=== PATIENT | female | born 1990 | race Caucasian/White ===

== ENCOUNTER 2018-11-19 07:34 | Inpatient (IN) ==
[2018-11-20] MEDS ORDERED: DINOPROSTONE 10 MG INSERT PV ONE (09:11)
[2018-11-20] MEDS ORDERED: OXYTOCIN 30 UNITS/500 ML BAG IV PRN (09:11)
--- NOTE | 2018-11-20 09:31 | History & Physical Report ---
Date of Service November 20, 2018 Assessment & Plan (1) Post-dates : 28 yo at 41.4 wks, IOL for postdates GBS negative FHR reassuring Plan admit, labs, monitor, Cervidil for cervical ripening All questions were answered History of Present Illness Chief Complaint: Induction of labor Primary Care Provider: NO PCP Patient is a 28 yo t 41.4 wks, IOL for postdates No complaints No ctxs/ LOF/VB +FM No SANDERS/ Change in vision/ N&V/ leg pain Her has been uncomplicated GBS negative Allergies Allergy/AdvReac Type Severity Reaction Status Date / Time No Known Allergies Allergy Unknown Verified 11/18/18 22:02 Home Medications Home Medications Medication Instructions Recorded Confirmed Type vit-iron fum-folic ac 1 tab PO DAILY 11/18/18 11/18/18 History [ Vitamin] Patient History Medical History PCOS (polycystic ovarian syndrome) (Chronic) IBS (irritable bowel syndrome) (Chronic) Alcohol withdrawal (Acute) Tobacco use disorder (Chronic) Surgical History No pertinent past surgical history Social History Preferred Language: Lebanese Visual Impairment: No Limitations Beliefs That Will Affect Care: None marital status: Single Current Living Situation: Significant Other Other Information That Helps Us Care for You: No Feels Safe at Home: Yes Safety Concerns: Feels Safe At This Time Smoking Status: Never smoker Hx Alcohol Use: No 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
[2018-11-20 09:38] LABS: Hematocrit (blood only) 30.6 % (37-47); Hemoglobin 10.2 g/dL (12.0-16.0); Platelet Count 229 K/uL (130-400); RDW Coefficient of Variation 13.7 % (11.5-14.5); RDW Standard Deviation 41.6 fL (36.4-46.3); Red Blood Count 3.73 M/uL (4.2-5.4); White Blood Count 8.41 K/uL (4.8-10.8)
[2018-11-20 09:55] LABS: Mean Corpuscular Hgb Conc 33.3 g/dL (32-36)
--- NOTE | 2018-11-20 17:57 | Obstetrical Progress Note ---
Date of Service November 20, 2018 Subjective Patient is reevaluated She feels cramping/ ctxs on and off, mildly painful, not very regular yet Able to walk in hallways No LOF/VB +FM FHR : categ I [place]: ctxs q1-3 min, patient does not feel them all Continue to monitor Results & Data Vital Signs (Past 12 Hours) Vital Signs Temp Pulse Resp BP 11/20/18 17:02 83 128/66 11/20/18 14:58 96 H 131/81 11/20/18 10:09 106 H 123/69 11/20/18 09:00 37.3 C 20
[2018-11-20] MEDS ORDERED: BUTORPHANOL TARTRATE 2 MG/ML VIAL IV PRN (18:53)
[2018-11-20] MEDS ORDERED: ONDANSETRON INJ 2 MG/ML 2 ML VIAL IV PRN (18:53)
--- NOTE | 2018-11-20 23:15 | Obstetrical Progress Note ---
Date of Service November 20, 2018 Subjective Patient is reevaluated Cervidil was removed about on hour ago, cervix was unchanged, 1-2/ 30%/ -4, posterior She took shower and ate dinner She does not feel much ctxs She feels pelvic pain while walking only No pain while in bed No LOF/VB +FM FHR 140's, categ I, good accels, no decels, moderate variability [place]: mild short ;lasting ctxs ( palpated) every 1-4 min, patient does not feel them all Plan continue with cervical ripening, PO Cytotec All questions were answered Results & Data Vital Signs (Past 12 Hours) Vital Signs Temp Pulse Resp BP 11/20/18 22:03 100 H 138/85 11/20/18 18:17 36.9 C 18 11/20/18 17:02 83 128/66 11/20/18 14:58 96 H 131/81
[2018-11-21] MEDS: miSOPROStol 50 MCG TAB PO SCH ×4 (00:55→13:22)
[2018-11-21] MEDS ORDERED: OXYTOCIN 30 UNITS/500 ML BAG IV PRN (10:36)
[2018-11-21] MEDS: LACTATED RINGER'S 1,000 ML IV PRN ×4 (11:49→21:28)
[2018-11-21] MEDS ORDERED: fentaNYL citrate 100 MCG/2 ML VIAL ONE ×2 (16:26→23:55)
[2018-11-21] MEDS ORDERED: ePHEDrine sulfate 50 MG/ML AMP ONE (16:26)
[2018-11-21] MEDS ORDERED: BUPIVACAINE 0.25% 30 ML VIAL ONE (16:26)
[2018-11-21] MEDS ORDERED: fentaNYL 2MCG/ML ROPIV 1.25MG/ML 100 ML BAG EPI ONE (16:27)
--- NOTE | 2018-11-21 16:55 | Anesthesiology Consultation ---
Date of Service November 21, 2018 Assessment & Plan Chart Review Chart Review: Patient NOT seen in Pre Admission Testing and Acceptable Risk for Labor Epidural Consults Requested none ASA ASA2 Proposed Anesthesia Anesthesia Type: Labor Epidural Risk / Benefits Reviewed With: PT / POA / Parent / Guardian, Accepts Plan and Informed Consent Obtained History Height/Weight Height: 1.57 m Weight: 71.668 kg Allergies Allergy/AdvReac Type Severity Reaction Status Date / Time No Known Allergies Allergy Unknown Verified 11/18/18 22:02 Medications Home Medications Medication Instructions Recorded Confirmed Last Taken vit-iron fum-folic ac 1 tab PO DAILY 11/20/18 11/20/18 11/19/18 08:00 [ Vitamin] Active Medications Generic Name Dose Route Start Last Admin Trade Name Freq PRN Reason Stop Dose Admin Lactated Ringer's 1,000 mls @ 150 mls/hr 11/20/18 09:11 11/21/18 16:44 Lr IV 11/22/18 09:10 999 mls/hr .Q6H40M PRN Administration L&D Protocol Protocol Oxytocin 30 units in 500 mls @ 10 mls/hr 11/21/18 10:36 11/21/18 16:07 Pitocin IV 11/23/18 10:35 0.6 units/hr .Q24H PRN 10 mls/hr Labor Induction/Augmentation Titration Protocol Misoprostol 50 mcg 11/20/18 23:00 11/21/18 13:22 Cytotec PO 12/20/18 22:59 Not Given Q4 ELEN NPO Date Last Intake of Fluids: 11/21/18 Time Last Intake of Fluids: 15:55 Date Last Intake of Solids: 11/21/18 Time Last Intake of Solids: 13:00 Past Medical History Medical History PCOS (polycystic ovarian syndrome) (Chronic) IBS (irritable bowel syndrome) (Chronic) Alcohol withdrawal (Acute) Tobacco use disorder (Chronic) Exercise / Class Metabolic Activity II 4-5 Yardwork/Stairs/Walk up hill Past Surgical History Surgical History H/O laceration of skin Facial s/p surgery No pertinent past surgical history Past Anesthesia History No Hx of Anesthesia Complications and No Family Hx of Anesthesia Complications History of PONV No Hx of PONV and No Hx of Motion Sickness Social History Smoking Status: Never smoker Hx Alcohol Use: No Alcohol type: hard liquor (06/23 everyday) Hx Substance Use: No substance use type: does not use Physical Exam Vital Signs Last Vital Signs Temp 37.1 C 11/21/18 16:40 Pulse 104 H 11/21/18 16:48 Resp 20 11/21/18 16:40 BP 125/80 11/21/18 16:40 Pulse Ox 100 11/21/18 16:48 ENMT Mouth: no TMJ abnormality and no TMJ clicking Thyromental Distance: > or= 3.5 Finger Breadths Mallampati Class: II Neck normal visual inspection; neck extension not limited Respiratory Auscultation: lungs clear to auscultation bilaterally Cardiovascular Rate/Rhythm: regular rate and regular rhythm Heart Sounds: no murmur Psychiatric Orientation: alert and oriented x 3
[2018-11-21] MEDS ORDERED: NALBUPHINE HCL INJ 10 MG/ML AMP IV PRN (17:30)
[2018-11-21] MEDS ORDERED: PROMETHAZINE HCL 12.5 MG in SODIUM CHLORIDE 0.9% 50 ML IV PRN ×2 (17:30→23:57)
[2018-11-21] MEDS ORDERED: NALOXONE HCL 0.4 MG/1 ML VIAL/CARP IV PRN (17:30)
[2018-11-21] MEDS ORDERED: fentaNYL 2MCG/ML ROPIV 1.25MG/ML 100 ML BAG EPI PRN (17:30)
[2018-11-21] MEDS ORDERED: NALOXONE HCL 1 MG in SODIUM CHLORIDE 0.9% 1000ML 1,000 ML IV PRN (17:30)
[2018-11-21] MEDS ORDERED: DiphenhydrAMINE HCL 50 MG/ML VIAL IV PRN (17:30)
[2018-11-21] MEDS ORDERED: ONDANSETRON INJ 2 MG/ML 2 ML VIAL IV PRN ×2 (17:30→23:57)
[2018-11-21] MEDS ORDERED: ePHEDrine sulfate 50 MG/ML AMP IV PRN ×2 (17:30→23:57)
[2018-11-21] MEDS ORDERED: cefOXitin 2,000 MG/60 ML BAG IV STA (23:53)
[2018-11-21] MEDS ORDERED: LIDOCAINE/EPINEPHRINE 2% 1:200,000 20 ML SDV ONE (23:55)
[2018-11-21] MEDS ORDERED: ATROPINE SULFATE 0.1 MG/ML 10ML SYR IV PRN (23:57)
[2018-11-21] MEDS ORDERED: fentaNYL citrate 100 MCG/2 ML VIAL IV PRN (23:57)
[2018-11-21] MEDS ORDERED: PHENYLEPHRINE 100MCG/ML 5ML SYR IV PRN (23:57)
[2018-11-22] MEDS ORDERED: CITRIC ACID/SODIUM CITRATE 15 ML UDC PO ONE
[2018-11-22] MEDS ORDERED: OXYTOCIN 10 UNITS/ML VIAL ONE (00:22)
[2018-11-22] MEDS ORDERED: MoRPHine SULFATE PF 1 MG/ML 10 ML AMP/VIAL ONE (00:23)
--- NOTE | 2018-11-22 00:32 | Anesthesiology Consultation ---
Date of Service November 22, 2018 Assessment & Plan Chart Review Chart Review: Acceptable Risk for Surgery and Patient NOT seen in Pre Admission Testing Consults Requested none ASA ASA2E Proposed Anesthesia Anesthesia Type: MAC Epidural Risk / Benefits Reviewed With: PT / POA / Parent / Guardian, Accepts Plan and Informed Consent Obtained History Surgery Operation Date: 11/21/18 23:30 Proposed Procedures p Section in LD - Twan Sanchez MD Height/Weight Height: 1.57 m Weight: 71.668 kg Allergies Allergy/AdvReac Type Severity Reaction Status Date / Time No Known Allergies Allergy Unknown Verified 11/18/18 22:02 Medications Home Medications Medication Instructions Recorded Confirmed Last Taken vit-iron fum-folic ac 1 tab PO DAILY 11/20/18 11/20/18 11/19/18 08:00 [ Vitamin] Active Medications Generic Name Dose Route Start Last Admin Trade Name Freq PRN Reason Stop Dose Admin Lactated Ringer's 1,000 mls @ 150 mls/hr 11/20/18 09:11 11/21/18 22:39 Lr IV 11/22/18 09:10 150 mls/hr .Q6H40M PRN Infusion L&D Protocol Protocol Oxytocin 30 units in 500 mls @ 12 mls/hr 11/21/18 10:36 11/21/18 23:49 Pitocin IV 11/23/18 10:35 Infused .Q24H PRN Titration Labor Induction/Augmentation Protocol 0.72 UNITS/HR Misoprostol 50 mcg 11/20/18 23:00 11/21/18 13:22 Cytotec PO 12/20/18 22:59 Not Given Q4 ELEN NPO Date Last Intake of Fluids: 11/21/18 Time Last Intake of Fluids: 23:55 Date Last Intake of Solids: 11/21/18 Time Last Intake of Solids: 13:00 Past Medical History Medical History PCOS (polycystic ovarian syndrome) (Chronic) IBS (irritable bowel syndrome) (Chronic) Alcohol withdrawal (Acute) Tobacco use disorder (Chronic) Exercise / Class Metabolic Activity II 4-5 Yardwork/Stairs/Walk up hill Past Surgical History Surgical History H/O laceration of skin Facial s/p surgery No pertinent past surgical history Past Anesthesia History No Hx of Anesthesia Complications and No Family Hx of Anesthesia Complications History of PONV No Hx of PONV and No Hx of Motion Sickness Social History Smoking Status: Never smoker Hx Alcohol Use: No Alcohol type: hard liquor (06/23 everyday) Hx Substance Use: No substance use type: does not use Physical Exam Vital Signs Last Vital Signs Temp 37.4 C 11/21/18 22:00 Pulse 133 H 11/22/18 00:09 Resp 18 11/21/18 19:16 BP 121/68 11/22/18 00:09 Pulse Ox 97 11/22/18 00:08 ENMT Mouth: no TMJ abnormality and no TMJ clicking Thyromental Distance: > or= 3.5 Finger Breadths Mallampati Class: II Neck normal visual inspection; neck extension not limited Respiratory Auscultation: lungs clear to auscultation bilaterally Cardiovascular Rate/Rhythm: regular rate and regular rhythm Heart Sounds: no murmur Psychiatric Orientation: alert and oriented x 3 Testing Laboratory Results 11/20/18 09:22
[2018-11-22] MEDS ORDERED: ePHEDrine sulfate 50 MG/ML AMP IV PRN (00:48)
[2018-11-22] MEDS ORDERED: MoRPHine SULFATE PF 1 MG/ML 10 ML AMP/VIAL EPI ONE (00:48)
[2018-11-22] MEDS ORDERED: MEPERIDINE HCL 25 MG/ML CARP IV PRN (00:48)
[2018-11-22] MEDS ORDERED: NALOXONE HCL 1 MG in SODIUM CHLORIDE 0.9% 1000ML 1,000 ML IV PRN (00:48)
[2018-11-22] MEDS ORDERED: NALOXONE HCL 0.4 MG/1 ML VIAL/CARP IV PRN (00:48)
[2018-11-22] MEDS ORDERED: PROMETHAZINE HCL 25 MG in SODIUM CHLORIDE 0.9% 50 ML IV PRN ×2 (00:48→18:48)
[2018-11-22] MEDS ORDERED: LACTATED RINGER'S 500 ML IV PRN (00:48)
[2018-11-22] MEDS ORDERED: MoRPHine SULFATE 2 MG/ML CARP IV PRN (00:48)
[2018-11-22] MEDS ORDERED: NALBUPHINE HCL INJ 10 MG/ML AMP IV PRN (00:48)
[2018-11-22] MEDS ORDERED: ONDANSETRON INJ 2 MG/ML 2 ML VIAL IV PRN ×2 (00:48→18:48)
[2018-11-22] MEDS ORDERED: DiphenhydrAMINE HCL 50 MG/ML VIAL IV PRN ×2 (00:48→18:48)
[2018-11-22] MEDS ORDERED: NALOXONE HCL 0.08 MG in SYRINGE 1.8 ML IV PRN (00:48)
[2018-11-22] MEDS ORDERED: OXYTOCIN 10 UNITS/ML VIAL IM ONE (00:49)
--- NOTE | 2018-11-22 00:52 | History and Physical Report ---
DATE OF ADMISSION: 11/20/2018 CHIEF COMPLAINT: Persistent tachycardia, arrest of labor secondary to cephalopelvic disproportion. HISTORY OF PRESENT ILLNESS: The patient is a 28-year-old 1, para 0. General health is good. She has had an uneventful course. Her due date is 11/09/2018. She brought in for induction for being post-term. She was given 3 doses of 50 mcg of Cytotec and also Cervidil tape. After that, she was started on Pitocin. Eventually, she had an epidural for pain control. Membranes were ruptured surgically. Fluid appeared to be clear. She was stimulated with IV Pitocin, had good contractions every 2-4 minutes and despite this had an arrest of labor at 4 cm for over 4 hours, no descent of the head. She began to develop a persistent tachycardia. Presently being scheduled for for cephalopelvic disproportion and persistent tachycardia. ALLERGIES: No known drug allergies. PAST SURGICAL HISTORY: No previous surgery. MEDICAL HISTORY: No history of rheumatic fever, heart disease, heart murmur, diabetes, tuberculosis. SOCIAL HISTORY: No smoking. No alcohol intake. Works at home. FAMILY HISTORY: Mom is 64 in good health. Has had 3 sections for childbirth. Dad 68 smoker, status post [place], status post stroke. Two brothers and 1 sister in good health. REVIEW OF SYSTEMS: HEAD: No symptoms of frequent or severe headaches. EYES: No symptoms of blurred vision, double vision. EARS: No symptoms of frequent ear infections, difficulty hearing. NOSE: No symptoms of frequent nosebleeds, difficulty breathing through her nose. THROAT: No symptoms of frequent or severe sore throat, difficulty swallowing. RESPIRATORY SYSTEM: No history of asthma, chest pain, shortness of breath. PHYSICAL EXAMINATION: GENERAL: Well-developed, well-nourished 28-year-old white female, alert, oriented x3 and cooperative in no acute distress, appears stated age. EYES: Conjunctivae are pink. Sclerae white, no evidence of jaundice. EARS: Had normal light reflex bilaterally. NOSE: Had normal mucosa. Septum is midline. There were no polyps. THROAT: No erythema or evidence of infection. Teeth are in good state of repair. HEAD: Normocephalic, normal distribution of hair. NECK: Supple. Trachea midline. Thyroid is not enlarged. There is no adenopathy appreciated. Both carotids are of good intensity. CHEST: Clear to auscultation and percussion. No wheezes, rales or rhonchi appreciated. HEART: Regular rhythm. S1 and S2 are normal. PELVIC: Vertex presentation, large amount of molding, -3 station. Cervix 100% effaced, 4+ cm dilated. MUSCULOSKELETAL: Revealed no calf tenderness. IMPRESSIONS OF THIS CASE: Persistent tachycardia post-term, cephalopelvic disproportion.
[2018-11-22] MEDS ORDERED: NO NARCOTICS OR SEDATIVES SCH (01:00)
[2018-11-22] MEDS ORDERED: DC INTRASPINAL MORPHINE SCH (01:00)
[2018-11-22] MEDS ORDERED: SODIUM CHLORIDE 0.9% 1000ML 1,000 ML IV SCH (01:00)
[2018-11-22] MEDS ORDERED: HYDROCORTISONE ACETATE 25 MG SUPP PR PRN (01:24)
[2018-11-22] MEDS ORDERED: SENNA 8.6 MG TAB PO PRN (01:24)
[2018-11-22] MEDS ORDERED: SUPERCREAM 0.870% 15 GM JAR EXT PRN (01:24)
[2018-11-22] MEDS ORDERED: MAGNESIUM HYDROXIDE SUSP 30 ML UDC PO PRN (01:24)
[2018-11-22] MEDS ORDERED: BENZOCAINE 20% AER SPR 82.5 GM CAN EXT PRN (01:24)
[2018-11-22] MEDS ORDERED: DIPHTHERIA/TETANUS/PERTUSSIS 0.5 ML SYR/VIAL IM ONE (01:24)
--- NOTE | 2018-11-22 01:28 | Post Operative Brief Note ---
Immediate Post Op Note v1 Date of Surgery November 22, 2018 Pre & Post Diagnosis Operation Date: 11/21/18 23:30 Pre-Op Diagnosis: 1. CPD 2. Persistent tachycardia Post-Op Diagnosis: Same Delivery of live male child at 0036 lower uterine transverse incision Procedure Operation Date: 11/21/18 23:30 Actual Procedures p Section in LD - Twan Sanchez MD Surgeon Twan Sanchez MD Aerial Gunner Superintendent none Estimated Blood Loss 600 Findings Consistent with Post-Op Diagnosis Fluids 2000 ml Specimens placenta Drains Sawyer Catheter Anesthesia Type MAC Epidural Complications none Disposition Accompanied Patient To Recovery: No Disposition: Recovery Room
[2018-11-22] MEDS ORDERED: OXYTOCIN 20 UNITS in LACTATED RINGER'S 1,000 ML IV SCH (01:30)
--- NOTE | 2018-11-22 02:37 | Operative Report ---
DATE OF OPERATION: 11/22/2018 PROCEDURE: Primary low segment section. INDICATIONS FOR SURGERY: Arrest of labor secondary to cephalopelvic disproportion, persistent tachycardia. POSTOPERATIVE DIAGNOSES: Arrest of labor secondary to cephalopelvic disproportion, persistent tachycardia, delivered 9 pound 10 ounce male. SURGEON: Yoselin Sanchez MD SEMICONDUCTOR LAB TECHNICIAN: Scrub nurse. ESTIMATED BLOOD LOSS: 600 mL. ANESTHESIA: Epidural. OPERATIVE FINDINGS AND PROCEDURE: The patient was brought to the OR table, correctly identified by armband and conversation. Compression stockings had been applied. A Sawyer catheter had been inserted aseptically in the bladder neck and connected to gravity drainage. Lower abdomen was painted with an alcohol based sterilizing solution, draped in the usual sterile fashion. Epidural anesthesia was topped off. It was tested and found to be adequate. Pfannenstiel incision was made and carried down to the anterior fascia by sharp dissection. Hemostasis was secured by electrocauterization. Fascia was incised transversely from the underlying muscle by blunt and sharp dissection. Recti muscles were in the midline exposing the peritoneum which was carefully raised and entered. An incision was made above the vesicouterine fold. The bladder was undermined bluntly and pushed out of the operative field. Lower uterine segment was scored with a knife and entered with the scissors. Clear amniotic fluid was seen at this time. Learning And Development Assistant's hand was placed into the uterine cavity with fundal pressure, infant was delivered. Cord was clamped and cut and the was attended to by the protective signal repairer who was present and scrubbed at the time of delivery. Cord blood was taken. Placenta was removed manually. Uterus, tubes, and ovaries were brought out through the incision. There is a laceration of the uterine artery on the right side. It was clamped above the defect, below the defect and 2 horizontal interrupted sutures of chromic were placed to control the bleeding. Then, the myometrium was approximated with continuous interlocking suture of chromic gut suture and the layer was approximated over this with a heavy Vicryl and this approximated the fascial layer and then 3 interrupted [id number] sutures of Vicryl was used to complete the hemostasis. Peritoneal edges were restored with a running plain. Hemostasis was excellent. The pelvis was cleansed of all blood clots and debris. Uterus, tubes, and ovaries were normal. We inserted into the abdomen. Careful anatomical approximation of the anterior abdominal wall was performed. Peritoneum was closed with a mattress suture of chromic catgut. Recti muscles were approximated with interrupted [id number] suture of chromic catgut. The fascia was closed with continuous interlocking suture of Vicryl on each side, tied in the midline. SubQ was approximated with a running plain. Skin edges were approximated with staple clips. I attest to the content of the Intraoperative Record and any orders documented therein. Any exception s are noted below.
--- NOTE | 2018-11-22 04:14 | Anesthesia Procedure Note ---
Date of Service November 22, 2018 Anesthesia Post Epidural Note Vital Signs Vital Signs: Temp Pulse Resp BP Pulse Ox 11/22/18 03:45 109 H 94 11/22/18 03:41 108 H 120/58 L 94 11/22/18 03:40 109 H 95 11/22/18 03:36 114 H 94 11/22/18 03:35 117 H 95 11/22/18 03:31 36.6 C 114 H 18 129/83 11/22/18 03:30 115 H 93 11/22/18 03:25 112 H 93 11/22/18 03:23 114 H 94 11/22/18 03:21 111 H 129/88 11/22/18 03:20 112 H 94 11/22/18 03:18 113 H 94 11/22/18 03:15 116 H 94 11/22/18 03:13 114 H 94 11/22/18 03:11 113 H 128/80 11/22/18 03:10 111 H 94 11/22/18 03:07 112 H 94 11/22/18 03:05 115 H 94 11/22/18 03:01 121 H 125/76 11/22/18 03:00 122 H 93 11/22/18 02:55 120 H 93 11/22/18 02:50 115 H 93 11/22/18 02:45 122 H 93 11/22/18 02:41 116 H 140/85 11/22/18 02:40 116 H 94 11/22/18 02:37 120 H 94 11/22/18 02:35 118 H 95 11/22/18 02:32 113 H 94 11/22/18 02:31 37.3 C 103 H 18 133/85 11/22/18 02:30 105 H 95 11/22/18 02:26 107 H 94 11/22/18 02:25 106 H 94 11/22/18 02:21 36.5 C 107 H 18 129/78 94 11/22/18 02:20 108 H 95 11/22/18 02:15 104 H 95 11/22/18 02:11 36.7 C 107 H 16 127/76 11/22/18 02:10 109 H 96 11/22/18 02:08 110 H 94 11/22/18 02:05 100 H 96 11/22/18 02:01 36.6 C 100 H 18 117/71 11/22/18 02:00 105 H 95 11/22/18 01:59 105 H 93 11/22/18 01:55 96 H 97 11/22/18 01:51 37.4 C 18 119/71 11/22/18 01:50 95 H 96 11/22/18 01:45 95 H 96 11/22/18 01:41 37.3 C 97 H 18 119/64 94 11/22/18 01:40 95 H 96 11/22/18 01:35 97 H 96 11/22/18 01:31 36.7 C 97 H 18 119/65 11/22/18 01:30 97 H 95 11/22/18 00:09 133 H 121/68 11/22/18 00:08 132 H 97 11/22/18 00:07 141 H 118/66 11/22/18 00:03 138 H 98 11/22/18 00:00 141 H 117/75 11/21/18 23:58 135 H 98 11/21/18 23:53 137 H 98 11/21/18 23:48 131 H 99 11/21/18 23:46 127 H 108/71 11/21/18 23:43 112 H 98 11/21/18 23:38 122 H 100 11/21/18 23:33 111 H 99 11/21/18 23:31 113 H 126/70 11/21/18 23:28 110 H 99 11/21/18 23:23 105 H 98 11/21/18 23:18 98 H 100 11/21/18 23:16 100 H 110/62 11/21/18 23:13 105 H 99 11/21/18 23:08 108 H 100 11/21/18 23:03 106 H 100 11/21/18 23:00 110 H 101/55 L 11/21/18 22:58 110 H 100 11/21/18 22:53 112 H 98 11/21/18 22:48 109 H 98 11/21/18 22:45 108 H 118/58 L 11/21/18 22:43 113 H 99 11/21/18 22:38 106 H 98 11/21/18 22:33 107 H 100 11/21/18 22:32 107 H 118/62 11/21/18 22:30 107 H 90 11/21/18 22:28 101 H 98 11/21/18 22:23 98 H 98 11/21/18 22:18 101 H 98 11/21/18 22:15 100 H 118/71 11/21/18 22:13 101 H 99 11/21/18 22:08 104 H 99 11/21/18 22:03 106 H 98 11/21/18 22:02 90 122/77 11/21/18 22:00 37.4 C 125 H 90 11/21/18 21:58 105 H 98 11/21/18 21:53 97 H 99 11/21/18 21:50 37.4 C 11/21/18 21:48 112 H 100 11/21/18 21:45 115 H 131/69 11/21/18 21:43 112 H 100 11/21/18 21:38 105 H 100 11/21/18 21:33 98 H 100 11/21/18 21:30 96 H 114/71 11/21/18 21:28 91 H 100 11/21/18 21:23 103 H 98 11/21/18 21:18 98 H 100 11/21/18 21:15 91 H 118/75 11/21/18 21:13 94 H 98 11/21/18 21:08 108 H 99 11/21/18 21:03 105 H 98 11/21/18 21:00 37.2 C 11/21/18 20:58 106 H 98 11/21/18 20:53 108 H 96 11/21/18 20:48 103 H 97 11/21/18 20:45 93 H 119/67 11/21/18 20:43 104 H 97 11/21/18 20:38 108 H 96 11/21/18 20:33 94 H 97 11/21/18 20:30 100 H 117/68 11/21/18 20:28 100 H 98 11/21/18 20:23 107 H 98 11/21/18 20:18 92 H 98 11/21/18 20:16 94 H 118/67 11/21/18 20:13 99 H 97 11/21/18 20:08 111 H 97 11/21/18 20:03 90 97 11/21/18 20:01 90 123/71 11/21/18 19:58 88 97 11/21/18 19:53 101 H 99 11/21/18 19:48 102 H 98 11/21/18 19:45 104 H 106/62 11/21/18 19:43 105 H 98 11/21/18 19:38 100 H 98 11/21/18 19:33 104 H 98 11/21/18 19:28 110 H 98 11/21/18 19:23 101 H 97 11/21/18 19:18 103 H 97 11/21/18 19:16 37.4 C 131 H 18 108/57 L 11/21/18 19:13 113 H 97 11/21/18 19:08 113 H 98 11/21/18 19:03 105 H 99 11/21/18 19:01 109 H 122/74 11/21/18 18:58 105 H 99 11/21/18 18:53 94 H 99 11/21/18 18:48 115 H 98 11/21/18 18:46 113 H 127/73 11/21/18 18:45 37.5 C 18 11/21/18 18:43 120 H 99 11/21/18 18:38 97 H 99 11/21/18 18:33 114 H 100 11/21/18 18:31 112 H 124/78 11/21/18 18:28 108 H 99 11/21/18 18:23 101 H 100 11/21/18 18:18 107 H 100 11/21/18 18:16 110 H 119/76 11/21/18 18:13 126 H 99 11/21/18 18:08 121 H 99 11/21/18 18:03 127 H 98 11/21/18 18:01 129 H 122/79 11/21/18 17:58 119 H 97 11/21/18 17:53 110 H 98 11/21/18 17:48 122 H 95 11/21/18 17:45 109 H 137/64 11/21/18 17:44 84 221/110 H 11/21/18 17:43 134 H 98 11/21/18 17:38 149 H 99 11/21/18 17:37 125 H 125/69 93 11/21/18 17:34 126 H 116/73 11/21/18 17:33 122 H 99 11/21/18 17:31 103 H 122/74 11/21/18 17:28 91 H 114/77 96 11/21/18 17:25 110 H 77/47 L 11/21/18 17:23 103 H 79/49 L 94 11/21/18 17:20 101 H 113/83 11/21/18 17:18 107 H 99 11/21/18 17:16 94 H 125/71 11/21/18 17:13 101 H 99 11/21/18 17:08 107 H 99 11/21/18 17:03 105 H 99 11/21/18 16:58 102 H 97 11/21/18 16:53 104 H 100 11/21/18 16:48 104 H 100 11/21/18 16:43 94 H 100 11/21/18 16:40 37.1 C 100 H 20 125/80 11/21/18 16:38 83 99 11/21/18 15:19 37.1 C 75 18 119/74 11/21/18 14:00 85 118/81 11/21/18 13:15 90 120/84 11/21/18 11:57 84 122/71 11/21/18 09:40 79 120/71 11/21/18 07:53 36.9 C 83 18 119/65 11/21/18 05:55 18 11/21/18 04:19 36.8 C 85 18 103/57 L Pain Intensity Abdomen: Pain Intensity: 8 Notes Mental Status: alert / awake / arousable Patient Amnestic to Procedure: No Nausea / Vomiting: adequately controlled Pain: adequately controlled Airway Patency, RR, SpO2: stable & adequate BP & HR: stable & adequate Hydration State: stable & adequate Anesthetic Complications: no major complications apparent Epidural: Removed without complications and With tip intact Notes: Pt doing well. No complaints of SANDERS, backache, paresthesia. Epidural site looks clean and dry without signs of erythema or edema
[2018-11-22] MEDS: KETOROLAC 30 MG/ML VIAL IV PRN ×3 (06:28→17:38)
[2018-11-22] MEDS: SIMETHICONE 80 MG CHEW PO SCH ×4 (09:25→20:30)
[2018-11-22] MEDS: DOCUSATE SODIUM 100 MG CAP PO SCH ×2 (09:25→20:30)
[2018-11-22] MEDS: FERROUS SULFATE 325 MG TAB PO SCH (09:25)
[2018-11-22] MEDS: PRENATAL VITAMIN 1 TAB PO SCH (09:25)
[2018-11-22] MEDS: LACTATED RINGER'S 1,000 ML IV SCH ×2 (09:37→17:35)
[2018-11-22] MEDS ORDERED: ZOLPIDEM TARTRATE 5 MG TAB PO PRN (18:48)
[2018-11-22] MEDS ORDERED: OXYCODONE/ACETAMINOPHEN 5mg/325mg TAB PO PRN (18:48)
[2018-11-22] MEDS ORDERED: KETOROLAC 30 MG/ML VIAL IV PRN (18:48)
[2018-11-22] MEDS ORDERED: MEPERIDINE HCL 50 MG/ML CARP IV PRN (18:48)
[2018-11-23] MEDS: IBUPROFEN 600 MG TAB PO PRN ×4 (02:11→20:12)
[2018-11-23 07:17] LABS: Basophils # (auto) 0.01 K/uL (0-0.2); Basophils % (auto) 0.1 %; Eosinophils # (auto) 0.06 K/uL (0-0.5); Eosinophils % (auto) 0.6 %; Hematocrit (blood only) 28.4 % (37-47); Hemoglobin 9.4 g/dL (12.0-16.0); Immature Granulocytes # (auto) 0.02 K/uL (0.00-0.02); Immature Granulocytes % (auto) 0.2 %; Lymphocytes # (auto) 1.43 K/uL (1.2-3.4); Lymphocytes % (auto) 13.7 %; Mean Corpuscular Hgb Conc 33.1 g/dL (32-36); Mean Corpuscular Volume 82.3 fL (80-100); Mean Platelet Volume 9.1 fL (7.4-10.4); Monocytes # (auto) 0.76 K/uL (0.11-0.59); Monocytes % (auto) 7.3 %; Neutrophils # (auto) 8.15 K/uL (1.4-6.5); Neutrophils % (auto) 78.1 %; Platelet Count 195 K/uL (130-400); RDW Standard Deviation 42.3 fL (36.4-46.3); Red Blood Count 3.45 M/uL (4.2-5.4); White Blood Count 10.43 K/uL (4.8-10.8)
--- NOTE | 2018-11-23 08:16 | Obstetrical Progress Note ---
Date of Service November 23, 2018 Subjective Patient is seen and examined. She feels well, no complaints. Pain is under control with oral meds. Ambulating without dizziness. Voiding without difficulty Tolerating regular diet with out N&V Flatus + BM neg Bleeding is minimal No fever/ chills/ CP/ SOB/ N&V/ Leg pain Breast feeding without problems Vital Signs Temp Pulse Resp BP Pulse Ox 11/23/18 00:20 37.1 C 111 H 17 115/77 93 11/22/18 20:15 36.6 C 98 H 18 104/72 99 11/22/18 19:15 16 98 11/22/18 18:15 16 97 11/22/18 17:15 16 99 11/22/18 16:15 16 99 11/22/18 15:15 36.5 C 98 H 16 106/71 98 11/22/18 14:15 16 99 11/22/18 13:15 16 99 11/22/18 12:15 16 98 11/22/18 11:45 36.9 C 105 H 18 121/82 99 11/22/18 11:15 18 99 11/22/18 10:15 16 99 11/22/18 09:15 16 100 Intake and Output 11/22/18 11/23/18 11/23/18 22:59 06:59 14:59 Intake Total 681.250 / 2062.500 Output Total 625 / 2205 600 / 2205 Balance 56.250 / -142.500 -600 / -142.500 Intake: IV 681.250 / 1712.500 Lr 1,000 ml @ 125 mls/hr IV . 681.250 / 1329.167 Q8H [facility] Rx#:[id number] Output: Urine 600 / 600 Urine Amount (Catheter) 625 / 1605 Sawyer/Indwelling 625 / 1605 11/23/18 Range/Units 07:00 WBC 10.43 (4.8-10.8) K/uL RBC 3.45 L (4.2-5.4) M/uL Hgb 9.4 L (12.0-16.0) g/dL Hct 28.4 L (37-47) % MCV 82.3 (80-100) fL MCH 27.2 (25-34) pg MCHC 33.1 (32-36) g/dL RDW Std Deviation 42.3 (36.4-46.3) fL RDW Coeff of Bridget 14.0 (11.5-14.5) % Plt Count 195 (130-400) K/uL MPV 9.1 (7.4-10.4) fL Immature Gran % (Auto) 0.2 % Neut % (Auto) 78.1 % Lymph % (Auto) 13.7 % [place] % (Auto) 7.3 % Eos % (Auto) 0.6 % Baso % (Auto) 0.1 % Immature Gran # (Auto) 0.02 (0.00-0.02) K/uL Neut # (Auto) 8.15 H (1.4-6.5) K/uL Lymph # (Auto) 1.43 (1.2-3.4) K/uL [place] # (Auto) 0.76 H (0.11-0.59) K/uL Eos # (Auto) 0.06 (0-0.5) K/uL Baso # (Auto) 0.01 (0-0.2) K/uL PE: General: Alert, orientedx3, NAD CVS: S1S2 RRR Lungs; CTAB Abd: soft, NT, ND, BS+, fundus firm, below Umbilicus Incision/ Raimundo: Clean, dry, intact Perineum intact, Lochia rubra minimal Ext; NT, no edema AP: 28 yo s/p C Section, pod# 1 VSS Afebrile doing well Continue routine postop care Encourage ambulation, PO intake All questions were answered Results & Data Vital Signs (Past 12 Hours) Vital Signs Temp Pulse Resp BP Pulse Ox 11/23/18 00:20 37.1 C 111 H 17 115/77 93 11/22/18 20:15 36.6 C 98 H 18 104/72 99
[2018-11-23] MEDS: DOCUSATE SODIUM 100 MG CAP PO SCH ×2 (11:23→20:11)
[2018-11-23] MEDS: PRENATAL VITAMIN 1 TAB PO SCH (11:23)
[2018-11-23] MEDS: FERROUS SULFATE 325 MG TAB PO SCH (11:23)
[2018-11-23] MEDS: SIMETHICONE 80 MG CHEW PO SCH ×3 (11:23→20:11)
[2018-11-23] MEDS ORDERED: BISACODYL 5 MG TABEC PO SCH (20:00)
[2018-11-24] MEDS ORDERED: BISACODYL 10 MG SUPP PR PRN (01:24)
[2018-11-24 07:04] LABS: Hematocrit (blood only) 30.1 % (37-47); Hemoglobin 9.9 g/dL (12.0-16.0)
--- NOTE | 2018-11-24 09:28 | Obstetrical Progress Note ---
Date of Service November 24, 2018 Physical Exam Physical Exam: abdomen soft and non tender incision is clean and dry no calf tenderness ambulating well hgb 9.4 Results & Data Vital Signs (Past 12 Hours) Vital Signs Temp Pulse Resp BP Pulse Ox 11/24/18 00:30 36.9 C 97 H 16 108/69 98
[2018-11-24] MEDS: PRENATAL VITAMIN 1 TAB PO SCH (09:41)
[2018-11-24] MEDS: DOCUSATE SODIUM 100 MG CAP PO SCH ×2 (09:41→20:45)
[2018-11-24] MEDS: FERROUS SULFATE 325 MG TAB PO SCH (09:41)
[2018-11-24] MEDS: SIMETHICONE 80 MG CHEW PO SCH ×3 (09:41→20:45)
[2018-11-24] MEDS: IBUPROFEN 600 MG TAB PO PRN ×2 (09:43→20:45)
[2018-11-25] MEDS: IBUPROFEN 600 MG TAB PO PRN ×2 (00:40→06:32)
--- NOTE | 2018-11-25 11:09 | Psychiatric Consultation ---
Date of Consultation November 25, 2018 Impression / Recommendations Impression 28-year-old female with a history of bipolar type II and alcohol use disorder who is admitted after the of her first child. Psychiatric consultation was requested to evaluate mood and anxiety, and the patient would like to start medication to target mood and received information for outpatient mental health care. (1) Bipolar II disorder: Reviewed diagnosis and treatment options with the patient, including use of medications and therapy, and the importance of healthy routines, specifically sufficient sleep. She would like to start mood stabilizing medication, and as oxcarbazepine was minimally effective, we discussed a trial of lamotrigine. Reviewed the risks, benefits, and side effects, including Perkins-Andres syndrome. Start standard dose titration, 25 mg daily x 2 weeks, then 50 mg daily. Please provide a prescription at discharge for 25 mg tablets with these instructions. -She will need outpatient follow-up with a psychiatrist and therapist, and a referral cannot be made today as it is the weekend. The liaison nurse will provide her with a list of options locally. Encouraged her to call tomorrow to arrange outpatient treatment. Reviewed crisis intervention options if needed in the interim, including the [place] can help line or going to the emergency room. Present on Admission?: Yes (2) Alcohol use disorder: 11/25 -patient reports sobriety for the past year after completing rehab. Follow up with outpatient mental health treatment as above. Present on Admission?: Yes Risk Factors Assessment Male: No : Yes Health Problems: No Mental Health Diagnoses: Yes Substance Use Disorders: Yes Previous Attempt: No Family History of Suicide: No Previous Psychiatric Hospitalization: No Hopelessness: No Protective Factors Assessment : No Responsible for Young Children: Yes Employed: Yes Stable Relationships: Yes Supportive Family: Yes Absence of Any Risk Factors Above: Yes (Denies SI and HI, no history of suicide attempts, currently sober from substances, infant, supportive family and significant other, willing for medication and outpatient treatment. The patient is not at acute risk of harm to herself or others, and can be managed as an outpatient.) Psych History Chief Complaint "I was worried I might get depression". History of Present Illness Patient is a 28-year-old female who was admitted 11/20/2018 for post dates . She was induced, and ultimately had a on 11/22/2018. Psychiatry was consulted due to a history of bipolar and anxiety. The psychiatric liaison nurse met with her last evening, and she reported feeling anxious, overwhelmed, and fearful that she is developing depression. Although she endorsed thoughts of self-harm, she denied thoughts of harming anyone else including her baby, and denied any plan or intent to act on thoughts. She reported a history of bipolar disorder diagnosed while she was in a dual diagnosis rehab at [facility] in 2018, but had not been in treatment or on medications since she got . She also reported sobriety throughout her . She was having difficulty with breast-feeding, but has now decided to use formula. On my assessment, she reports that her only psychiatric assessment occurred while she was at rehab for alcohol abuse about 1 year ago. She believes she was diagnosed with bipolar type II and started on Trileptal, which she took for several months until she got . She states that mood was "pretty good" throughout her , until about the last month, when she began having mild anxiety and mood symptoms, feeling overwhelmed, wondering how she would manage after her baby was born. Anxiety and mood worsened further after her , as she was uncomfortable and felt she was not able to do everything she needed to take care of her baby. She states that yesterday was difficult day for her, but she is feeling better today after getting a good night of sleep. She reports a history of depressive episodes which typically last days to 1 week, and consist of low mood, low energy, lack of motivation, decreased interest, and not wanting to get out of bed. She also reports episodes of elevated mood, with impulsivity and pleasure seeking behavior, including excessive spending. She reports she never followed up with outpatient mental health treatment after completing rehab, but would like to start seeing a therapist and psychiatrist, and would like medication for mood. She reports good support from the father of her baby and her families, and denies any safety concerns with discharge. Past Psychiatric History Previous Psych History: Per patient, she was diagnosed with bipolar type II while at dual diagnosis rehab at [facility] in 2018. She was started on Trileptal there, which she took for several months until she got . She never followed up with outpatient treatment. Outpatient Services: None Previous Psych Admissions: Denies History of Previous Suicide Attempt: No Past Medication Trials: Trileptal -at best was only minimally effective, started in 2018 while at rehab, took it for 3-4 months, and stopped when got . Additional Notes: Family history of depression and mother and sister. Allergies Allergy/AdvReac Type Severity Reaction Status Date / Time No Known Allergies Allergy Unknown Verified 11/18/18 22:02 Home Medications Home Medications Medication Instructions Recorded Confirmed Type Vitamin 1 tab PO DAILY 11/20/18 11/20/18 History Personal History Living Arrangements: Home Living Arrangements Comments: With the father of her baby and her grandmother in [place]; multiple family members live nearby and are good supports. 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 Other Number Of Children: 1 Beliefs That Will Affect Care: None History of Legal Problems: Denies Psychological Trauma History Comment: of grandfather 10 years ago, and dog bite requiring surgery. Denies history of emotional, physical, or sexual abuse. Patient History Medical History PCOS (polycystic ovarian syndrome) (Chronic) IBS (irritable bowel syndrome) (Chronic) Alcohol withdrawal (Acute) Tobacco use disorder (Chronic) Surgical History H/O laceration of skin Facial s/p surgery No pertinent past surgical history Social History Preferred Language: Wallisian Visual Impairment: No Limitations Beliefs That Will Affect Care: None marital status: Single Current Living Situation: Significant Other Other Information That Helps Us Care for You: No Feels Safe at Home: Yes Safety Concerns: Feels Safe At This Time Smoking Status: Never smoker Hx Alcohol Use: No Hx Substance Use: No Physical Exam Psychiatric: Orientation: alert and cooperative Apperance: appropriately dressed and + disheveled Eye Contact: good eye contact Motor Behavior: no abnormal motor movements Speech: normal rate/rhythm/volume of speech Affect: + blunted affect But appropriate, reactive "A little low, but better today." Thought Process: goal directed thought process Thought Content: reality based without delusions Suicidal Thoughts: denies suicidal thoughts Homicidal Thoughts: denies homicidal thoughts Hallucinations: no auditory hallucinations Cognition: recent memory grossly intact, attention grossly intact and language grossly intact Insight: good insight Judgement: good judgement Vital Signs (Past 24 Hours): Last Vital Signs Temp 36.6 C 11/25/18 07:46 Pulse 82 11/25/18 07:46 Resp 16 11/25/18 07:46 BP 123/81 11/25/18 07:46 Pulse Ox 99 11/25/18 07:46 Review of Systems All systems reviewed & are unremarkable except as noted in HPI & below Pain status post Results & Data Medications Administered Docusate Sodium (Colace) 100 mg PO BID [facility] Stop: 12/22/18 08:59 Last Admin: 11/24/18 20:45 Dose: 100 mg Documented by: [id number] Admin: 11/24/18 09:41 Dose: 100 mg Documented by: [id number] Admin: 11/23/18 20:11 Dose: 100 mg Documented by: [id number] Admin: 11/23/18 11:23 Dose: 100 mg Documented by: [id number] Admin: 11/22/18 20:30 Dose: 100 mg Documented by: [id number] Admin: 11/22/18 09:25 Dose: 100 mg Documented by: [id number] Ferrous Sulfate (Feosol) 325 mg PO QAM [facility] Stop: 12/22/18 08:59 Last Admin: 11/24/18 09:41 Dose: 325 mg Documented by: [id number] Admin: 11/23/18 11:23 Dose: 325 mg Documented by: [id number] Admin: 11/22/18 09:25 Dose: 325 mg Documented by: [id number] Lactated Ringer's (Lr) 1,000 mls @ 125 mls/hr IV .Q8H [facility] Stop: 12/22/18 01:29 Last Infusion: 11/22/18 20:15 Dose: 0 mls/hr Documented by: [id number] Admin: 11/22/18 17:35 Dose: 125 mls/hr Documented by: [id number] Infusion: 11/22/18 17:35 Dose: 125 mls/hr Documented by: [id number] Infusion: 11/22/18 14:48 Dose: 125 mls/hr Documented by: [id number] Admin: 11/22/18 09:37 Dose: 125 mls/hr Documented by: [id number] Oxytocin 20 units/ Lactated (Ringer's) 1,002 mls @ 125 mls/hr IV .Q8H1M [facility] Stop: 12/22/18 01:29 Last Infusion: 11/22/18 09:38 Dose: 0 mls/hr Documented by: [id number] Cosigned by: [id number] Infusion: 11/22/18 06:34 Dose: 125 mls/hr Documented by: [id number] Cosigned by: [id number] Infusion: 11/22/18 03:50 Dose: 125 mls/hr Documented by: [id number] Cosigned by: [id number] Admin: 11/22/18 02:00 Dose: 125 mls/hr Documented by: [id number] Cosigned by: [id number] Ibuprofen (Motrin) 600 mg PO Q4H PRN PRN Reason: Pain Stop: 12/22/18 01:23 Last Admin: 11/25/18 06:32 Dose: 600 mg Documented by: [id number] Admin: 11/25/18 00:40 Dose: 600 mg Documented by: [id number] Admin: 11/24/18 20:45 Dose: 600 mg Documented by: [id number] Admin: 11/24/18 09:43 Dose: 600 mg Documented by: [id number] Admin: 11/23/18 20:12 Dose: 600 mg Documented by: [id number] Admin: 11/23/18 15:54 Dose: 600 mg Documented by: [id number] Admin: 11/23/18 08:14 Dose: 600 mg Documented by: [id number] Admin: 11/23/18 02:11 Dose: 600 mg Documented by: [id number] Misoprostol (Cytotec) 50 mcg PO Q4 [facility] Stop: 12/20/18 22:59 Last Admin: 11/21/18 13:22 Dose: Not Given Documented by: [id number] Admin: 11/21/18 10:09 Dose: Not Given Documented by: [id number] Admin: 11/21/18 06:16 Dose: 50 mcg Documented by: [id number] Admin: 11/21/18 00:55 Dose: 50 mcg Documented by: [id number] Prenat Multivit/Seed Potato Cutter/Iron/Folic Ac ( Vitamin) 1 tab PO QAM [facility] Stop: 12/22/18 08:59 Last Admin: 11/24/18 09:41 Dose: 1 tab Documented by: [id number] Admin: 11/23/18 11:23 Dose: 1 tab Documented by: [id number] Admin: 11/22/18 09:25 Dose: 1 tab Documented by: [id number] Simethicone (Mylicon) 80 mg PO QID [facility] Stop: 12/22/18 08:59 Last Admin: 11/24/18 20:45 Dose: 80 mg Documented by: [id number] Admin: 11/24/18 18:22 Dose: 80 mg Documented by: [id number] Admin: 11/24/18 09:41 Dose: 80 mg Documented by: [id number] Admin: 11/23/18 20:11 Dose: 80 mg Documented by: [id number] Admin: 11/23/18 18:40 Dose: 80 mg Documented by: [id number] Admin: 11/23/18 11:23 Dose: 80 mg Documented by: [id number] Admin: 11/22/18 20:30 Dose: 80 mg Documented by: [id number] Admin: 11/22/18 17:35 Dose: 80 mg Documented by: [id number] Admin: 11/22/18 12:16 Dose: 80 mg Documented by: [id number] Admin: 11/22/18 09:25 Dose: 80 mg Documented by: [id number]
[2018-11-25] MEDS ORDERED: lamoTRIgine 25 MG TAB PO SCH (12:15)
[2018-11-25] MEDS: SIMETHICONE 80 MG CHEW PO SCH (12:36)
--- NOTE | 2018-11-25 13:13 | Obstetrical Progress Note ---
Date of Service November 25, 2018 Physical Exam Physical Exam: abdomen soft and non tender vaginal bleeding scant incision is clean and dry no calf tenderness ambulating well psychiatric consult obtained Results & Data Vital Signs (Past 12 Hours) Vital Signs Temp Pulse Resp BP Pulse Ox 11/25/18 07:46 36.6 C 82 16 123/81 99
--- NOTE | 2018-11-26 08:07 | Communication Note ---
Date of Service: November 26, 2018 Saw patient 11/25/18 and completed consult, started lamotrigine for bipolar II. Contacted by staff (psychiatric liaison nurse) after discharge reporting the patient did not receive a prescription at discharge, and primary attending was not able to prescribe it. [facility] nursing staff called in a prescription for the patient.
--- NOTE | 2018-11-28 01:44 | Discharge Summary ---
The patient is a 28-year-old 1, para 1 who was brought in for induction at post-term. She has had only received 3 doses of p.o. 50 mcg of Cytotec and Cervidil tape. After that, she was started on I.V. Pitocin. Eventually, she had her membranes ruptured surgically. She had epidural for pain control and she arrested at about 4-5 cm for over 4 hours. She began to develop persistent tachycardia. She was taken to the Operating Room where she underwent primary low segment section for persistent tachycardia and cephalopelvic disproportion. Surgery was performed without difficulty. Postoperatively, the patient did well. Bowel sounds returned within 24 hours. Hemoglobin stabilized. She was afebrile. Prior to discharge, she received a psych consult because she had intermittent problems in the past with depression and felt that the depression was starting to kick again. At the time of discharge, she was ambulating well. She had a contact for psychiatric help and she was told to return to the office in 7 days for removal of flores and to call if she had temperature over 100 or any heavy bleeding.
== END 2018-11-25 15:21 | disposition home or self-care (01) | DRG 788 ==
LOC: 4S1 11-20 08:34 → 4S2 11-22 04:55